=== PATIENT | female | born 1960 | race Caucasian/White ===

== ENCOUNTER 2021-07-30 08:23 | Outpatient (CLI) | payer BC, SELFPAY ==
--- NOTE | 2021-07-30 08:00 | DI.RAD_ITS ---
Exam(s) XR SHOULDER RT COMPLETE 2+V EXAM: XR SHOULDER RT COMPLETE 2+V CLINICAL HISTORY: right shoulder pain. TECHNIQUE: 2D digital imaging was performed. COMPARISON: No exams were available for comparison FINDINGS: Two views No evidence of fracture nor dislocation no abnormal soft tissue calcifications. Subacromial space ap pears unremarkable. There are no obvious degenerative changes in the glenohumeral and AC joints. No evidence of os acromiale. Coracoid process is intact. IMPRESSION: No significant radiographic findings. DATA REPOSITORY: RADIATION DOSE DELIVERED:
== END 2021-07-30 08:24 | disposition home or self-care (01) ==
LOC: DIORS 08:23
PROVIDERS: PCP Family Medicine; Visit Provider Student in an Organized Health Care Education/Training Program
DX: M25.511 Pain in right shoulder (principal)
CPT/HCPCS: 73030